=== PATIENT | female | born 1955 | race Caucasian/White ===

== ENCOUNTER 2019-05-17 11:00 | Observation (INO) | payer OTHER, SELFPAY ==
[2019-05-17] MEDS ORDERED: ASPIRIN 81 MG CHEWABLE TABLET ONE (11:05)
[2019-05-17] MEDS ORDERED: ONDANSETRON 4 MG/2 ML VIAL ONE (11:06)
[2019-05-17] MEDS ORDERED: FENTANYL CITR 100 MCG/2 ML ONE (11:06)
[2019-05-17] MEDS ORDERED: NA CHLORIDE 0.9% 500 ML ONE (11:06)
--- NOTE | 2019-05-17 11:36 | EKG ---
Test Date: 2019-05-17 Test Time: 11:02:16 Payroll Benefits Administrator: ADY MEASUREMENT RESULTS: Intervals: Rate: 72 CT: 130 QRSD: 76 QT: 440 QTc: 481 Ambler: P: 67 CT: 130 QRS: 13 T: 61 INTERPRETIVE STATEMENTS: Normal sinus rhythm Low voltage QRS Borderline ECG Compared to ECG 04/15/2015 13:31:00 Low QRS voltage now present Sinus arrhythmia no longer present Electronically Signed On 05-17-19 11:35:52 CDT by Daniel Bhatt
[2019-05-17 11:37] LABS: Absolute Lymphocytes (CBC) 2.2 K/uL (0.7-4.9); Basophils % 0.7 % (0-1.3); Hematocrit 37.1 % (36.0-45.0); Lymphocytes % 30.2 % (15.3-44.8); RBC Red Blood Cell Count 4.11 M/uL (3.86-4.86)
[2019-05-17 11:42] LABS: Protime INR 0.94
--- NOTE | 2019-05-17 11:51 | RAD REPORT ---
EXAM DESCRIPTION: RAD - Chest Single View - 05/17/2019 11:46 am CLINICAL HISTORY: CHEST PAIN Chest pain. COMPARISON: No comparisons FINDINGS: Portable technique limits examination quality. The lungs are grossly clear. The heart is normal in size. No displaced fractures. IMPRESSION: No acute intrathoracic process suspected.
[2019-05-17 11:58] LABS: ALT/SGPT 23 U/L (12-78); AST/SGOT 37 U/L (15-37); Albumin 3.5 g/dL (3.4-5.0); Alkaline Phosphatase 76 U/L (45-117); BUN Blood Urea Nitrogen 11 mg/dL (7-18); Bicarbonate 28 mmol/L (21-32); Bilirubin Direct 0.1 mg/dL (0-0.2); Bilirubin Total 0.3 mg/dL (0.2-1.0); Glucose Level 142 mg/dL (74-106); Lipase 89 U/L (73-393); Magnesium 2.1 mg/dL (1.8-2.4); NT PRO-BNP 46 pg/mL (<125); Potassium 3.2 mmol/L (3.5-5.1); Protein, Total 7.2 g/dL (6.4-8.2); Sodium Level 142 mmol/L (136-145); Troponin (Emerg Dept Use Only) < 0.02 ng/mL (0.0-0.045)
[2019-05-17] MEDS ORDERED: METHYLPREDNISOLONE 125 MG INJ ONE (12:27)
[2019-05-17] MEDS ORDERED: DIPHENHYDRAMINE 50 MG/ML VIAL ONE (12:27)
[2019-05-17] MEDS ORDERED: POTASSIUM CL SA 10 MEQ TAB PO ONE (12:28)
--- NOTE | 2019-05-17 12:57 | RAD REPORT ---
EXAM DESCRIPTION: CT - Angio Aorta For Dissection - 05/17/2019 12:43 pm CLINICAL HISTORY: . Chest and abdominal pain COMPARISON: None TECHNIQUE: Computed tomography angiography of the chest, abdomen pelvis were obtained. 100 cc Isovue 370 was administered intravenously. Coronal and sagittal reconstruction were performed. MIP 3D reconstruction was performed All CT scans are performed using dose optimization technique as appropriate and may include automated exposure control or mA/KV adjustment according to patient size. FINDINGS: An aortic dissection is not seen. An aortic aneurysm is not displayed. The celiac, SMA and JOSE A are patent . A lung consolidation is not present. A pericardial effusion is not seen. A pleural effusion is not n oted. The liver,spleen, pancreas adrenals kidneys demonstrate no significant abnormality. . There no evidence diverticulitis. No ascites is noted. Small inguinal hernias contain fat IMPRESSION: Negative for an aortic dissection.
--- NOTE | 2019-05-17 13:01 | EDPHYS ---
Physician Documentation [facility] Name: Tiffanie Koenig Age: 63 yrs Sex: Female : 1955 Arrival Date: 05/17/2019 Time: 11:03 Bed 2 Private MD: ED Physician Ankur Melendez HPI: 05/17 11:05 This 63 yrs old Female presents to ER via Unassigned with complaints of chest jr8 pain. 11:05 The patient or guardian reports chest pain that is located primarily in the epigastric jr8 area. Onset: 1 hour(s) ago. The pain radiates to Associated signs and symptoms: Pertinent positives: diaphoresis, dizziness, nausea, Pertinent negatives: palpitations, syncope, vomiting. The chest pain is described as a pressure. 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 Reports pain has subsided some but is still present. Pain is described as pressure. Historical: - Allergies: 11:22 Iodine; sg 11:22 Sulfazine; sg 11:22 Doxycycline; sg - Home Meds: 11:22 cyanocobalamin (vitamin B-12) oral oral [Active]; Bumetanide Oral once daily for sg Hypertension [Active]; - PMHx: 11:22 Hypothyroidism; High Cholesterol; Hypertension; sg - Immunization history:: Adult Immunizations up to date. - Social history:: Smoking status: Patient/guardian denies using tobacco. - Ebola Screening: : Patient negative for fever greater than or equal to 101.5 degrees Fahrenheit, and additional compatible Ebola Virus Disease symptoms Patient denies exposure to infectious person Patient denies travel to an Ebola-affected area in the 21 days before illness onset No symptoms or risks identified at this time. ROS: 11:09 Constitutional: Negative for fever, chills, and weight loss, Eyes: Negative for injury, jr8 pain, redness, and discharge, ENT: Negative for injury, pain, and discharge, Neck: Negative for injury, pain, and swelling, Abdomen/GI: Negative for abdominal pain, nausea, vomiting, diarrhea, and constipation, Back: Negative for injury and pain, MS/Extremity: Negative for injury and deformity. 11:09 Cardiovascular: Positive for chest pain, Negative for edema, orthopnea, palpitations, paroxysmal nocturnal dyspnea. 11:09 Respiratory: Negative for cough, dyspnea on exertion, hemoptysis, orthopnea, pleurisy, shortness of breath. 11:09 Abdomen/GI: Negative for abdominal pain, nausea and vomiting. Exam: 11:09 Constitutional: This is a well developed, well nourished patient who is awake, alert, jr8 and in no acute distress. Head/Face: Normocephalic, atraumatic. Eyes: Pupils equal round and reactive to light, extra-ocular motions intact. Lids and lashes normal. Conjunctiva and sclera are non-icteric and not injected. Cornea within normal limits. Periorbital areas with no swelling, redness, or edema. ENT: Nares patent. No nasal discharge, no septal abnormalities noted. Tympanic membranes are normal and external auditory canals are clear. Oropharynx with no redness, swelling, or masses, exudates, or evidence of obstruction, uvula midline. Mucous membranes moist. Neck: Trachea midline, no thyromegaly or masses palpated, and no cervical lymphadenopathy. Supple, full range of motion without nuchal rigidity, or vertebral point tenderness. No Meningismus. Chest/axilla: Normal chest wall appearance and motion. Nontender with no deformity. No lesions are appreciated. Respiratory: Lungs have equal breath sounds bilaterally, clear to auscultation and percussion. No rales, rhonchi or wheezes noted. No increased work of breathing, no retractions or nasal flaring. Abdomen/GI: Soft, non-tender, with normal bowel sounds. No distension or tympany. No guarding or rebound. No evidence of tenderness throughout. Back: No spinal tenderness. No costovertebral tenderness. Full range of motion. Skin: Warm, dry with normal turgor. Normal color with no rashes, no lesions, and no evidence of cellulitis. MS/ Extremity: Pulses equal, no cyanosis. Neurovascular intact. Full, normal range of motion. Neuro: Awake and alert, GCS 15, oriented to person, place, time, and situation. Cranial nerves II-XII grossly intact. Motor strength 5/5 in all extremities. Sensory grossly intact. Cerebellar exam normal. Normal gait. 11:09 Cardiovascular: Pulses: no pulse deficits are appreciated, Heart sounds: normal, normal S1and S2, Edema: is not appreciated, JVD: is not appreciated. Vital Signs: 11:19 BP 150 / 75; Pulse 60; Resp 16; Temp 97.6; Pulse Ox 98% on R/A; Height 5 ft. 5 in. sg (165.10 cm); Pain 8/10; 12:30 BP 132 / 77; Pulse 70; Resp 17; Pulse Ox 99% on R/A; Pain 8/10; sg 13:27 Weight 65.09 kg (M); iw 13:59 BP 131 / 70; Pulse 77; Resp 17 S; Temp 97.6; Pulse Ox 100% on R/A; Pain 1/10; sg 13:27 Body Mass Index 22.48 (65.09 kg, 165.10 cm) iw Helena Coma Score: 12:30 Eye Response: spontaneous(4). Verbal Response: oriented(5). Motor Response: obeys sg commands(6). Total: 15. Trauma Score (Adult): 12:30 Eye Response: spontaneous(1); Verbal Response: oriented(1); Motor Response: obeys sg commands(2); Systolic BP: > 89 mm Hg(4); Respiratory Rate: 10 to 29 per min(4); Natalie Score: 15; Trauma Score: 12 MDM: 11:05 Patient medically screened. jr8 12:59 The patient was given aspirin in the Emergency Department. Data reviewed: vital signs, jr8 nurses notes, lab test result(s), EKG, radiologic studies, CT scan, plain films. Data interpreted: Pulse oximetry: on room air is 98 %. Interpretation: normal. Counseling: I had a detailed discussion with the patient and/or guardian regarding: the historical points, exam findings, and any diagnostic results supporting the discharge/admit diagnosis, lab results, radiology results, the need for further work-up and treatment in the hospital. 05/17 11:04 Order name: Basic Metabolic Panel; Complete Time: : jr8 05/17 11:04 Order name: CBC with Diff; Complete Time: 11:46 jr8 05/17 11:04 Order name: LFT's; Complete Time: :58 jr8 05/17 11:04 Order name: Magnesium; Complete Time: :58 jr8 05/17 11:04 Order name: NT PRO-BNP; Complete Time: 11:58 05/17 11:04 Order name: PT-INR; Complete Time: 11:46 05/17 11:04 Order name: Troponin (emerg Dept Use Only); Complete Time: 11:58 05/17 11:04 Order name: XRAY Chest (1 view); Complete Time: 11:57 05/17 11:04 Order name: Lipase; Complete Time: 11:58 05/17 12:12 Order name: CT Aorta for Dissection; Complete Time: 12:59 05/17 11:04 Order name: EKG; Complete Time: 11:05 8 05/17 11:04 Order name: Cardiac monitoring; Complete Time: 11:06 8 05/17 11:04 Order name: EKG - Nurse/Tech; Complete Time: 11:06 05/17 11:04 Order name: IV Saline Lock; Complete Time: 11:06 8 05/17 11:04 Order name: Labs collected and sent; Complete Time: 11:06 05/17 11:04 Order name: O2 Per Protocol; Complete Time: 11:06 05/17 11:04 Order name: O2 Sat Monitoring; Complete Time: 11:06 Administered Medications: 11:10 Drug: Aspirin 162 mg Route: PO; sg 11:10 Drug: fentaNYL (PF) 50 mcg Route: IVP; Site: right forearm; sg 11:10 Drug: Zofran 4 mg Route: IVP; Site: right forearm; sg 11:10 Drug: NS 0.9% 500 ml Route: IV; Rate: bolus; Site: right forearm; sg 12:34 Drug: Benadryl 12.5 mg Route: IVP; Site: right forearm; sg 12:34 Drug: SOLU-Medrol 125 mg Route: IVP; Site: right forearm; sg 13:05 Drug: Potassium Chloride 40 mEq Route: PO; sg 13:54 Drug: Lovenox 1 mg/kg Route: Sub-Q; Site: left lower abdomen; sg Disposition: 14:41 Co-signature as Attending Physician, Ankur Melendez MD. rn Disposition: 05/17/19 13:00 Hospitalization ordered by Nasir Carty for Observation. Preliminary diagnosis is Chest pain, unspecified. - Bed requested for Telemetry/MedSurg (observation). - Status is Observation. iw - Condition is Stable. - Problem is new. - Symptoms have improved. UTI on Admission? No Signatures: Dispatcher [employer] EDBambi Degroot RN MJ dw Rupesh Damico, RN Chyna Garcia, Ankur Jolly RN, MD MD rn Roszak, Josh, PA PA jr8 Corrections: (The following items were deleted from the chart) 13:40 13:00 Hospitalization Ordered by Nasir Carty MD for Observation. Preliminary diagnosis dw is Chest pain, unspecified. Bed requested for Telemetry/MedSurg (observation). Status is Observation. Condition is Stable. Problem is new. Symptoms have improved. UTI on Admission? No. jr8 14:03 13:40 05/17/2019 13:00 Hospitalization Ordered by Nasir Carty MD for Observation. iw Preliminary diagnosis is Chest pain, unspecified. Bed requested for Telemetry/MedSurg (observation). Status is Observation. Condition is Stable. Problem is new. Symptoms have improved. UTI on Admission? No. dw
--- NOTE | 2019-05-17 13:01 | ER ---
Nurse's Notes [facility] Name: Tiffanie Koenig Age: 63 yrs Sex: Female : 1955 Arrival Date: 05/17/2019 Time: 11:03 Bed 2 Private MD: Diagnosis: Chest pain, unspecified Presentation: 05/17 11:00 Presenting complaint: Patient states: I started having pain in my right side shoulder sg blade area that radiates through my chest to mid sternal area, also having a little nausea as well. Transition of care: patient was not received from another setting of care. Onset of symptoms was May 17, 2019. Risk Assessment: Do you want to hurt yourself or someone else? Patient reports no desire to harm self or others. Initial Sepsis Screen: Does the patient meet any 2 criteria? No. Patient's initial sepsis screen is negative. Does the patient have a suspected source of infection? No. Patient's initial sepsis screen is negative. Care prior to arrival: None. 11:00 Method Of Arrival: Ambulatory sg 11:00 Acuity: BILLIE 2 sg Historical: - Allergies: 11:22 Iodine; sg 11:22 Sulfazine; sg 11:22 Doxycycline; sg - Home Meds: 11:22 cyanocobalamin (vitamin B-12) oral oral [Active]; Bumetanide Oral once daily for sg Hypertension [Active]; - PMHx: 11:22 Hypothyroidism; High Cholesterol; Hypertension; sg - Immunization history:: Adult Immunizations up to date. - Social history:: Smoking status: Patient/guardian denies using tobacco. - Ebola Screening: : Patient negative for fever greater than or equal to 101.5 degrees Fahrenheit, and additional compatible Ebola Virus Disease symptoms Patient denies exposure to infectious person Patient denies travel to an Ebola-affected area in the 21 days before illness onset No symptoms or risks identified at this time. Screenin:12 Abuse screen: Denies threats or abuse. Denies injuries from another. Nutritional sg screening: No deficits noted. Tuberculosis screening: No symptoms or risk factors identified. Never had TB. Fall Risk None identified. Assessment: 11:25 General: Appears in no apparent distress. well groomed, well developed, well nourished, sg Behavior is calm, cooperative, appropriate for age. Pain: Complains of pain in chest Quality of pain is described as aching. Neuro: Level of Consciousness is awake, alert, obeys commands, Oriented to person, place, time, Data Analyst are equal bilaterally Moves all extremities. Gait is steady, Facial symmetry appears normal. Cardiovascular: Capillary refill is brisk in bilateral fingers Patient's skin is warm and dry. Chest pain is denied. Cardiovascular: Reports chest pain, nausea, Heart tones S1 S2 present. Respiratory: Airway is patent Respiratory effort is even, unlabored, Respiratory pattern is regular, symmetrical. GI: No signs and/or symptoms were reported involving the gastrointestinal system. : No signs and/or symptoms were reported regarding the genitourinary system. EENT: No signs and/or symptoms were reported regarding the EENT system. Derm: Skin is pink, warm \T\ dry. Musculoskeletal: Circulation, motion, and sensation intact. Range of motion: intact in all extremities, Swelling absent. 11:52 Reassessment: pt reports pain is still present but has decreased from an 8/10 to about sg a 4/10 at this time. 12:37 Reassessment: Patient appears in no apparent distress at this time. Patient and/or sg family updated on plan of care and expected duration. Pain level reassessed. Patient is alert, oriented x 3, equal unlabored respirations, skin warm/dry/pink. pt transport to CT with train control technician Tiffanie in stable condition, pt family remains at the bedside. 13:35 Reassessment: Patient appears in no apparent distress at this time. Patient and/or sg family updated on plan of care and expected duration. Pain level reassessed. Patient is alert, oriented x 3, equal unlabored respirations, skin warm/dry/pink. awaiting admission orders, awaiting evaluation by hospitalist Patient states feeling better. Vital Signs: 11:19 BP 150 / 75; Pulse 60; Resp 16; Temp 97.6; Pulse Ox 98% on R/A; Height 5 ft. 5 in. sg (165.10 cm); Pain 8/10; 12:30 BP 132 / 77; Pulse 70; Resp 17; Pulse Ox 99% on R/A; Pain 8/10; sg 13:27 Weight 65.09 kg (M); iw 13:59 BP 131 / 70; Pulse 77; Resp 17 S; Temp 97.6; Pulse Ox 100% on R/A; Pain 1/10; sg 13:27 Body Mass Index 22.48 (65.09 kg, 165.10 cm) iw Drumore Coma Score: 12:30 Eye Response: spontaneous(4). Verbal Response: oriented(5). Motor Response: obeys sg commands(6). Total: 15. Trauma Score (Adult): 12:30 Eye Response: spontaneous(1); Verbal Response: oriented(1); Motor Response: obeys sg commands(2); Systolic BP: > 89 mm Hg(4); Respiratory Rate: 10 to 29 per min(4); Drumore Score: 15; Trauma Score: 12 ED Course: 11:03 Patient arrived in ED. jr8 11:04 Walter Cristobal PA is PHCP. jr8 11:04 Ankur Melendez MD is Attending Physician. jr8 11:06 Rupesh Damico, MJ is Primary Nurse. sg 11:07 Initial lab(s) drawn, by md, sent to lab. Inserted saline lock: 20 gauge in right sg forearm, using aseptic technique. Blood collected. 11:19 Triage completed. sg 11:19 Arm band placed on. sg 11:22 Patient has correct armband on for positive identification. Placed in gown. Bed in low sg position. Call light in reach. Side rails up X2. monitoring tech on. Pulse ox on. NIBP on. a blanket given x2 Head of bed elevated. 11:48 XRAY Chest (1 view) In Process Unspecified. EDMS 12:[address] sg 12:44 CT Aorta for Dissection In Process Unspecified. EDMS 13:00 Nasir Carty MD is Hospitalizing Provider. jr8 13:34 Assisted to bathroom. sg 13:54 No provider procedures requiring assistance completed. Patient admitted, IV remains in sg place. intact, No redness/swelling at site. Administered Medications: 11:10 Drug: Aspirin 162 mg Route: PO; sg 11:10 Drug: fentaNYL (PF) 50 mcg Route: IVP; Site: right forearm; sg 11:10 Drug: Zofran 4 mg Route: IVP; Site: right forearm; sg 11:10 Drug: NS 0.9% 500 ml Route: IV; Rate: bolus; Site: right forearm; sg 12:34 Drug: Benadryl 12.5 mg Route: IVP; Site: right forearm; sg 12:34 Drug: SOLU-Medrol 125 mg Route: IVP; Site: right forearm; sg 13:05 Drug: Potassium Chloride 40 mEq Route: PO; sg 13:54 Drug: Lovenox 1 mg/kg Route: Sub-Q; Site: left lower abdomen; sg Outcome: 13:00 Decision to Hospitalize by Provider. jrMarcelino 13:54 Admitted to Tele accompanied by tech, via wheelchair, room 403, on monitor, with chart, sg Report called to 403 13:54 Condition: stable 13:54 Instructed on the need for admit, safety practices, Demonstrated understanding of instructions, follow-up care. 13:54 Admitted to Tele Report called to Karon BARKER sg 14:03 Patient left the ED. iw Signatures: Dispatcher [employer] EDRupesh Duran, RN RN Chyna Munoz RN MJ iw Walter Cristobal PA PA jr8 Corrections: (The following items were deleted from the chart) 13:39 11:19 BP 150 / 75; Pulse 60bpm; Resp 16bpm; Pulse Ox 98% RA; Temp 97.6F; 78.02 kg; sg Height 5 ft. 7 in.; BMI: 26.9; Pain 8/10; sg
[2019-05-17] MEDS ORDERED: ENOXAPARIN 80 MG/0.8 ML SQ ONE (13:45)
[2019-05-17] MEDS ORDERED: MORPHINE 4 MG/ML SYR IV PRN (13:56)
[2019-05-17] MEDS ORDERED: NITROGLYCERIN 0.4 MG/TAB SL PRN (13:56)
[2019-05-17 14:20] VITALS: BMI 22.4
[2019-05-17] MEDS ORDERED: FAMOTIDINE 20 MG TAB PO PRN (16:44)
--- NOTE | 2019-05-17 16:56 | P.HP ---
Certification for Inpatient Patient admitted to: Observation Practitioner: I am a practitioner with admitting privileges, knowledge of patient current condition, hospital course, and medical plan of care. Services: Services provided to patient in accordance with Admission requirements found in Title 42 Section 412.3 of the Code of Federal Regulations Patient History Date of Service: 05/17/19 Primary Care Provider: Dr. Espinal ([facility]) Reason for admission: Chest pain History of Present Illness: This is a 63-year-old female with past medical history of hypothyroidism, hypertension, hyperlipidemia, family history of heart disease who presented to the emergency room this chest pain. Per patient, she woke up this morning and she started with pressure and squeezing type of substernal chest pain that started radiating out and towards the back and also straight to the back between the shoulder blades. This was associated with shortness of breath, excessive sweating and nausea. There are no alleviating or exacerbating factors. She has never experienced such symptoms before. Patient did take 2 baby aspirins number this pain started. Due to the fact that she was excessively sweating along with the shortness of breath and nausea with the chest pain, patient got scared and she came to the emergency room. In the ER, blood pressure was 150/75, heart rate of 60, respirations of 16, afebrile at 97.6, 90% on room air and a BMI of 26.94. Her labs were fairly unremarkable. Troponin was negative x1. EKG was with low voltage but fairly unremarkable. CT was negative for acute dissection. Chest x-ray was negative for any acute abnormalities. She received aspirin, Bentyl, Zofran, IV fluids, IV Benadryl and soluMedrol in the ER. At the time of my exam, she was alert oriented x3, no acute distress and hemodynamically stable. She stated that her chest pressure/pain had improved but she could still feel it. Allergies cranberry Allergy (Verified 05/17/19 14:43) Itching doxycycline Allergy (Verified 04/15/15 13:49) headaches grass pollen Allergy (Verified 05/17/19 14:43) Shortness of breath iodine Allergy (Verified 04/15/15 13:49) Nausea/Vomiting irbesartan [From Avapro] Allergy (Verified 05/17/19 14:43) Itching levofloxacin [From Levaquin] Allergy (Verified 05/17/19 14:43) Hives/Rash mold Allergy (Verified 05/17/19 14:43) Shortness of breath pneumococcal vaccine [From Pneumovax 23] Allergy (Verified 05/17/19 14:43) Hives/Rash shrimp Allergy (Verified 05/17/19 14:43) Hives/Rash solifenacin [From Vesicare] Allergy (Verified 05/17/19 14:43) Itching Sulfa (Sulfonamide Antibiotics) Allergy (Verified 04/15/15 13:49) Anaphylaxis tree and shrub pollen Allergy (Verified 05/17/19 14:43) Anaphylaxis Home medications list reviewed: Yes Home Medications: Bumetanide 1 tab PO DAILY 05/17/19 Cholecalciferol (Vitamin D3) [Vitamin D3] 1 cap PO DAILY 05/17/19 Cyanocobalamin (Vitamin B-12) [Vitamin B12] 2,000 mcg PO DAILY 05/17/19 Estradiol 1 tab PO DAILY 05/17/19 Estradiol Cream 0.5 gm IV DIRECTED 05/17/19 Ezetimibe [Zetia*] 1 tab PO DAILY 05/17/19 Famotidine [Pepcid*] 1 tab PO DAILY PRN 05/17/19 Lactobacillus Acidophilus [Acidophilus] 2 cap PO DAILY 05/17/19 Levothyroxine Sodium [Synthroid] 100 mcg PO DAILY 05/17/19 Losartan Potassium [Cozaar] 1 tab PO DAILY 05/17/19 Polyethylene Glycol 3350 [Miralax] 1 packet PO PRN PRN 05/17/19 Pravastatin Sodium 1 tab PO DAILY 05/17/19 Venlafaxine HCl [Venlafaxine HCl ER] 1 tab PO DAILY 05/17/19 Vitamin E (Dl,Tocopheryl Acet) [Vitamin E] 300 unit PO DAILY 05/17/19 - Past Medical/Surgical History Has patient received pneumonia vaccine in the past: No Diabetic: No -: interstitial cystitis -: hypothyroidism -: hypertension -: hyperlipidemia -: hysterectomy -: remove septic bursa sac from left elbow -: reconstruction of vaginal apex uterosacral ligament suspension -: anterior colporrhaphy - Family History Father -: Hypertension, Stroke Mother -: Hypertension - Social History Smoking Status: Never smoker Alcohol use: Yes CD- Drugs: No Caffeine use: No Place of Residence: Home Review of Systems 10-point ROS is otherwise unremarkable Physical Examination - Vital Signs Temperature: 97.7 F Blood Pressure: 124/64 Pulse: 77 Respirations: 17 Pulse Ox (%): 97 - Physical Exam General: Alert, In no apparent distress, Oriented x3 HEENT: Atraumatic, PERRLA, Mucous membr. moist/pink, EOMI, Sclerae nonicteric Neck: Supple, 2+ carotid pulse no bruit, No LAD, Without JVD or thyroid abnormality Respiratory: Clear to auscultation bilaterally, Normal air movement Cardiovascular: Regular rate/rhythm, Normal S1 S2 Gastrointestinal: Normal bowel sounds, No tenderness Musculoskeletal: No tenderness Integumentary: No rashes Neurological: Normal gait, Normal speech, Normal strength at 5/5 x4 extr, Normal tone, Normal affect Lymphatics: No axilla or inguinal lymphadenopathy - Studies Laboratory Data (last 24 hrs) 05/17/19 11:13: PT 11.1, INR 0.94 05/17/19 11:13: WBC 7.2, Hgb 13.1, Hct 37.1, Plt Count 307 05/17/19 11:13: Sodium 142, Potassium 3.2 L, BUN 11, Creatinine 0.84, Glucose 142 H, Magnesium 2.1, Total Bilirubin 0.3, AST 37, ALT 23, Alkaline Phosphatase 76, Lipase 89 Assessment and Plan - Problems (Diagnosis) (1) Chest pain Current Visit: Yes Status: Acute Plan: Heart score: 4, age, gender, hypertension, hyperlipidemia, family history, presenting symptoms -Troponin negative x1, Trend troponin -EKG with non specific changes -ECHO ordered, pending -cardiology consulted, awaiting recommendations -Chest pain guidelines: BB, Statin, ASA/plavix, Losartan (home medication) -Patient also on bumex, unsure if ever diagnosed with CHF but denies any edema/ LE swelling at this time. Qualifiers: Chest pain type: unspecified Qualified Code(s): R07.9 - Chest pain, unspecified (2) Hypertension Current Visit: Yes Status: Chronic Plan: Stable, will resume home medications Qualifiers: Hypertension type: essential hypertension Qualified Code(s): I10 - Essential (primary) hypertension (3) Hyperlipidemia Current Visit: Yes Status: Chronic Plan: Continue statin Qualifiers: Hyperlipidemia type: unspecified Qualified Code(s): E78.5 - Hyperlipidemia , unspecified (4) Hypothyroidism Current Visit: No Status: Chronic Plan: Continue home synthroid Qualifiers: Hypothyroidism type: unspecified Qualified Code(s): E03.9 - Hypothyroidism , unspecified - Plan DVT prophylaxis: Aspirin/Plavix GI prophylaxis: Protonix Diet: Heart healthy, NPO after midnight Disposition:; Admit to floor with tele; pending cardiac workup. Anticipate discharge home in the next 24-48 hr if cardiac workup negative and cleared by Cardiology. Discharge Plan: Home - Advance Directives Does patient have a Living Will: No Does patient have a Durable POA for Healthcare: No Time Spent Managing Pts Care (In Minutes): 55
[2019-05-17 19:59] LABS: Urine Appearance CLEAR; Urine Bilirubin NEGATIVE (NEG); Urine Blood NEGATIVE (NEG); Urine Color YELLOW; Urine Glucose NEGATIVE (NEG); Urine Protein NEGATIVE (NEG); Urine Specific Gravity >=1.030 (1.005-1.030); Urine pH 7.5 (5.0-7.0)
[2019-05-17 20:29] LABS: Urine Bacteria <20 /HPF (<20); Urine Culture Reflex Order NOT NEEDED; Urine RBC <5 /HPF (NONE SEEN)
[2019-05-17] MEDS: ATORVASTATIN 40 MG TAB PO SCH (21:09)
[2019-05-17] MEDS: METOPROLOL TAR 25 MG TAB PO SCH (21:09)
[2019-05-18 04:59] LABS: Absolute Lymphocytes (CBC) 1.1 K/uL (0.7-4.9); Basophils % 0.1 % (0-1.3); Hematocrit 35.3 % (36.0-45.0); Lymphocytes % 7.2 % (15.3-44.8); MPV 8.4 fL (7.6-11.3); RBC Red Blood Cell Count 3.89 M/uL (3.86-4.86)
[2019-05-18 05:20] LABS: Potassium 4.5 mmol/L (3.5-5.1)
[2019-05-18] MEDS: CLOPIDOGREL 75 MG TABLET PO SCH (09:00)
[2019-05-18] MEDS: METOPROLOL TAR 25 MG TAB PO SCH ×2 (09:00→21:00)
[2019-05-18] MEDS: LEVOTHYROXINE SOD 0.1 MG TAB PO SCH (09:00)
[2019-05-18] MEDS: EZETIMIBE 10 MG TAB PO SCH (09:00)
[2019-05-18] MEDS ORDERED: HOME MED 1 EA UNK (Venlafaxine Hcl [Venlafaxine Hcl Er] 1 TAB) PO SCH (09:00)
[2019-05-18] MEDS: CYANOCOBALAMIN 1,000 MCG TAB PO SCH (09:00)
[2019-05-18] MEDS: VITAMIN E 400 IU CAP PO SCH (09:00)
[2019-05-18] MEDS ORDERED: CYANOCOBALAMIN 2000 MCG PO SCH (09:00)
[2019-05-18] MEDS ORDERED: HOME MED 1 EA UNK (Losartan Potassium [Cozaar] 1 TAB) PO SCH (09:00)
[2019-05-18] MEDS: VITAMIN D 5,000 UNIT CAP PO SCH (09:00)
[2019-05-18] MEDS ORDERED: LISINOPRIL 10 MG TAB PO SCH (09:00)
[2019-05-18] MEDS ORDERED: BUMETANIDE PO SCH (09:00)
[2019-05-18] MEDS: ASPIRIN EC 81 MG TAB PO SCH (09:00)
[2019-05-18] MEDS ORDERED: REGADENOSON 0.4 MG/5 ML SYR IV ONE (09:02)
[2019-05-18 10:07] LABS: Blood Morphology Comment NOT SEEN (NOT SEEN); Platelet Estimate ADEQ
--- NOTE | 2019-05-18 10:33 | RAD REPORT ---
EXAM DESCRIPTION: US - Abdomen Exam Complete - 05/18/2019 10:00 am CLINICAL HISTORY: Abdominal pain. cholecystitis COMPARISON: No comparisons FINDINGS: The liver is normal in size, shape and echotexture. No focal liver lesions or intrahepatic biliary dilatation is seen. Extensive cholelithiasis. No evidence of acute cholecystitis. Common bile duct is normal in caliber m easuring 4 mm. Both kidneys are normal in size, shape and echotexture. No hydronephrosis, focal lesion of concern or perinephric fluid. The spleen is normal in size measuring 7 cm. The pancreas and aorta are obscured by bowel gas. The visualized aspects of the IVC are grossly normal. IMPRESSION: Cholelithiasis.
--- NOTE | 2019-05-18 11:57 | RAD REPORT ---
EXAM DESCRIPTION: NM - Rest Stress Cardiac Imaging - 05/18/2019 11:50 am CLINICAL HISTORY: CP Chest pain. COMPARISON: No comparisons TECHNIQUE: The patient was administered approximately 10mCi of Tc 99m Sestamibi prior to resting SPE CT imaging of the heart. The patient was then administered approximately 30 mCi of Tc 99m Sestamibi f ollowing exercise or pharmacologic stress. Multiplanar SPECT images were reviewed. FINDINGS: No stress induced ischemic defect is seen to suggest stress induced ischemia. No fixed def ect is seen to suggest hibernating myocardium or scarred myocardium. The end diastolic volume is 60 ml, the end systolic volume is 15 ml, and the ejection fraction is 75 %. IMPRESSION: No stress induced ischemia.
--- NOTE | 2019-05-18 12:37 | ECHO ---
HEIGHT: 5 ft 7 in WEIGHT: 143 lb 0 oz DATE OF STUDY: 05/18/[address]: Nasir Carty MD 2-DIMENSIONAL: YES M.MODE: YES DOPPLER: YES COLOR FLOW: YES TDS: PORTABLE: DEFINITY: BUBBLE STUDY: DIAGNOSIS: CHEST PAIN CARDIAC HISTORY: CATHERIZATION: NO SURGERY: NO PROSTHETIC VALVE: NO PACEMAKER: NO MEASUREMENTS (cm) DIASTOLIC (NORMALS) SYSTOLIC (NORMALS) IVSd 0.8 (0.6-1.2) LA Diam 2.8 (1.9-4.0) LVEF 78% LVIDd 3.3 (3.5-5.7) LVIDs 1.8 (2.0-3.5) %FS 45% LVPWd 1.0 (0.6-1.2) Ao Diam 2.7 (2.0-3.7) 2 DIMENSIONAL ASSESSMENT: RIGHT ATRIUM: NORMAL LEFT ATRIUM: NORMAL RIGHT VENTRICLE: NORMAL LEFT VENTRICLE: NORMAL TRICUSPID VALVE: NORMAL MITRAL VALVE: NORMAL PULMONIC VALVE: NORMAL AORTIC VALVE: NORMAL PERICARDIAL EFFUSION: NONE AORTIC ROOT: NORMAL LEFT VENTRICULAR WALL MOTION: NORMAL DOPPLER/COLOR FLOW: PHYSIOLOGIC TRICUSPID REGURGITATION. NORMAL RIGHT VENTRICULAR SYSTOLIC PRESSURE. COMMENTS: NORMAL TWO DIMENSIONAL ECHOCARDIOGRAM WITH DOPPLER. TECHNOLOGIST: BONG WHITEHEAD
--- NOTE | 2019-05-18 12:49 | TREADPHA ---
DX: CHEST PAIN, HEART SCORE 4. Date of Study: 05/18/19 Ht: 5 7 Wt: 143 lb 0 oz Consulting Physician: WESTON MEDICATIONS: ASPIRIN, LIPITOR, VITAMIN D, PLAVIX, B-12, PEPCID, SYNTHROID, LOPRESSOR, COZAAR, NITROSTAT, EFFEXOR, MORPHINE SULFATE. HISTORY: 63 YEAR FEMALE, WITH COMPLAINTS OF CHEST PAIN. HISTORY OF: HYPERTENSION, HYPERLIPIDEMIA, HYPOTHYROIDISM. PHYSICIAL EXAMINATION: RESTING B.P.: 120/67 RESTING H.R.: 59 RESTING EKG: SINUS BRADYCARDIA, LOW VOLTAGE. PROTOCOL: LEXISCAN EXERCISE TIME: 3:30 B.P. AT PEAK STRESS: 123/66 IMPRESSION: LEXISCAN INJECTED, FOLLOWED BY CARDIOLITE PER PROTOCOL, SEE NUCLEAR MEDICINE REPORT. NO SUPRAVENTRICULAR TACHYCARDIA, VENTRICULAR TACHYCARDIA, PREMATURE ATRIAL COMPLEXS, OR PREMATURE VENTRICULAR COMPLEXS. PATIENT REPORTS NO CHEST PAIN. NON-DIAGNOSTIC ELECTROCARDIOGRAM WITH LEXISCAN STRESS.
--- NOTE | 2019-05-18 14:13 | CON ---
Identification: 63-year-old woman. Chief Complaint: Chest pain. History Of Present Illness: it started as right posterior shoulder pain, later she developed epigastric pain that seemed to radiate all around her chest, She also noted feeling sweaty and nauseated. All that lasted several hours. She came to the emergency room. Here cardiac enzyme and ecg w were normal. The patient has hypertension and dyslipidemia about a year ago, had a gallbladder workup that was equivocal. Apparently, they were not sure if she had acalculous cholecystitis or not. She has never had myocardial infarction or stroke. Elderly members of her family have CAD. Social History: She does not use tobacco, alcohol, or illegal drugs. Medications: Outpatient medications have been levothyroxine, venlafaxine, Estradiol cream, losartan, bumetanide, pravastatin, ezetimibe, famotidine, vitamin E, cholecalciferol, cyanocobalamin, lactobacillus, polyethylene glycol. Physical Examination: General: 5 feet 7 inch, 143 pounds. HEENT: Normal. Lungs: Clear. Cardiac: Within normal limits. Abdomen: Soft. Extremities: Normal. No cyanosis, clubbing, or edema. Laboratory Data: EKG shows low voltage, otherwise it is normal. All of her troponins are less than 0.02. Total cholesterol 168, LDL 75. Impression: This is probably not an acute coronary syndrome. We will get a stress test and echocardiogram ane we should study her gallbladder. RIGO Voice ID: [id number] Report ID: [id number]
[2019-05-18] MEDS: VENLAFAXINE HCL XR 75 MG CAP PO SCH (16:11)
[2019-05-18] MEDS: LOSARTAN POTASSIUM 50 MG TABLET PO SCH (16:11)
[2019-05-18] MEDS: BUMETANIDE 1 MG TABLET PO SCH (16:11)
[2019-05-18] MEDS: ATORVASTATIN 40 MG TAB PO SCH (21:00)
[2019-05-18] MEDS ORDERED: DIPHENHYDRAMINE 50 MG/ML VIAL IV PRN (21:22)
[2019-05-18] MEDS ORDERED: FAMOTIDINE 20 MG/2 ML VIAL IV SCH (21:24)
[2019-05-19] MEDS: METOPROLOL TAR 25 MG TAB PO SCH (08:33)
[2019-05-19] MEDS: VENLAFAXINE HCL XR 75 MG CAP PO SCH (09:00)
[2019-05-19] MEDS: ASPIRIN EC 81 MG TAB PO SCH (09:00)
[2019-05-19] MEDS: VITAMIN D 5,000 UNIT CAP PO SCH (09:00)
[2019-05-19] MEDS: BUMETANIDE 1 MG TABLET PO SCH (09:00)
[2019-05-19] MEDS: CLOPIDOGREL 75 MG TABLET PO SCH (09:00)
[2019-05-19] MEDS: VITAMIN E 400 IU CAP PO SCH (09:00)
[2019-05-19] MEDS: CYANOCOBALAMIN 1,000 MCG TAB PO SCH (09:00)
[2019-05-19] MEDS: EZETIMIBE 10 MG TAB PO SCH (09:00)
[2019-05-19] MEDS: LOSARTAN POTASSIUM 50 MG TABLET PO SCH (09:00)
[2019-05-19] MEDS: LEVOTHYROXINE SOD 0.1 MG TAB PO SCH (09:00)
[2019-05-19] MEDS ORDERED: MIDAZOLAM HCL 2 MG/2 ML INJ ONE (09:17)
[2019-05-19] MEDS ORDERED: LIDOCAINE 2% MPF 5 ML VIAL ONE (09:17)
[2019-05-19] MEDS ORDERED: PROPOFOL 200 MG/20 ML VIAL IV ONE (09:17)
[2019-05-19] MEDS ORDERED: FENTANYL CITR 100 MCG/2 ML ONE (09:17)
[2019-05-19] MEDS ORDERED: ROCURONIUM 50 MG/5 ML VIAL IV ONE (09:17)
[2019-05-19] MEDS ORDERED: ONDANSETRON 4 MG/2 ML VIAL ONE (09:20)
[2019-05-19] MEDS ORDERED: dexAMETHasone 4 MG/ML VIAL ONE (09:20)
[2019-05-19] MEDS ORDERED: Ringers Lactate 1,000 ML IV ONE ×2 (09:22→11:23)
--- NOTE | 2019-05-19 09:58 | P.CNS ---
Date of Consult: 05/18/19 PC: I was asked to see this 63-year-old female regards to your upper abdominal/ chest pain HPC: Patient presented to the emergency room with severe pain in the upper portion her abdomen and chest. Radiating straight through to her back. Cause her significant discomfort. Has had minor episodes like this over the last few months but nothing compared to this time. PMH: Hypertension, hyperlipidemia PSHx: Previous pelvic surgery for prolapsed SOC: Numerous allergies listed (have reviewed them) SYS REVIEW: No cough, wheeze, shortness of breath. Denies any urinary complaints. No change in bowel habit. O/E awake alert comfortable HEENT: Nonicteric Chest: Air entry equal bilaterally ABD: Mild right upper quadrant tenderness LOCO: Intact DATA: CT scan shows cholelithiasis IMPRESSION: Cholelithiasis, chronic cholecystitis with biliary colic PLAN: I will take this patient to the operating room for laparoscopic possible open cholecystectomy with cholangiogram. The risks of this procedure have been discussed. The possibility of bleeding, infection, injury to bowel blood vessels, bile ducts were explained. She understands and wants to proceed. The possible need for an open and/or further surgeries and procedures was discussed.
[2019-05-19] MEDS ORDERED: CEFOXITIN/SWI 1gm 1 GM/10 ML SYR ONE (10:09)
[2019-05-19] MEDS ORDERED: EPHEDRINE SULF 50 MG/ML VIAL ONE (10:26)
[2019-05-19] MEDS ORDERED: KETOROLAC 30 MG/ML INJ ONE (10:55)
[2019-05-19] MEDS ORDERED: GLYCOPYRROLATE 0.2 MG/ML SYR ONE ×2 (10:58→10:59)
[2019-05-19] MEDS ORDERED: NEOSTIGMINE 1 MG/ML -10 ML VIAL ONE (10:58)
--- NOTE | 2019-05-19 11:33 | P.OP ---
Preoperative diagnosis: Cholecystitis with cholelithiasis Postoperative diagnosis: The same Primary procedure: Laparoscopic cholecystitis Secondary procedure: Cholangiogram Anesthesia: General Estimated blood loss: Less than 10 cc Specimen: 1 gallbladder and content Findings: Normal cholangiogram Operative Technique: The patient was brought to the operating room placed supine on the table. After the induction of adequate general endotracheal anesthesia, the area of the abdomen is prepped with a DuraPrep solution, and draped in the usual aseptic manner. A subumbilical incision was made. This brought down through the skin and subcutaneous tissue. The Visiport was used to enter the peritoneal cavity and created pneumoperitoneum to approximately 12 mm of mercury. Under direct vision a 5 mm trocar was placed in the upper midline, and 2 other 5 mm trocars on the right lateral side. The patient's head was then elevated and rolled towards the road mixer operator's side. We could see. A grasper was placed on the fundus of the gallbladder. Another 1 was placed down by Negar's pouch. Applying lateral traction we were able to dissect and expose the cystic duct and artery. Having obtained the critical view, the artery was dealt with 1st. It was clipped and divided in the usual manner. A clip was then placed between the gallbladder and the cystic duct. An opening was made into the cystic duct. We attempted then to pass the cholangiocath into the cystic duct. We were able to inject the duct with the Isovue. We had good flow contrast into the duodenum. No filling defects were noted. There was a small air bubble but no stone was identified. Clips were now placed on the distal portion of the cystic duct. The cystic duct was then divided. The gallbladder was now dissected free from the liver bed, placed into an Endo-Catch, and brought out through the umbilical trocar site. The gallbladder fossa was inspected to ensure adequate hemostasis. It was irrigated with a saline solution and the irrigant aspirated from the peritoneal cavity. 0.25% Marcaine was aerosolized into the right upper quadrant and the gallbladder fossa. The umbilical trocar site was now approximated with an Endo Close and an absorbable sutures. The pneumoperitoneum was then collapsed, the suture tied, and lyudmila applied to the skin. A further 0.25% Marcaine was injected around are incision sites. At the end of the procedure the patient was in a stable condition when sent to the recovery room. Needle sponge instrument count were correct. 1 specimen was sent for histopathology. Complications: None Transferred to: Recovery Room Condition: Good
[2019-05-19] MEDS: HYDROMORPHONE HCL 1 MG/ML INJ ONE ×4 (11:34→11:50)
[2019-05-19] MEDS ORDERED: MORPHINE 4 MG/ML SYR IV PRN (11:52)
[2019-05-19] MEDS ORDERED: ONDANSETRON 4 MG/2 ML VIAL IV PRN (11:52)
[2019-05-19] MEDS: FENTANYL CITR 100 MCG/2 ML ONE ×2 (12:00→12:05)
[2019-05-19 12:08] VITALS: O2SAT 96
[2019-05-19 17:09] VITALS: BP 111/63; TEMP 97.4
--- NOTE | 2019-05-19 17:44 | P.PN ---
Subjective Date of Service: 05/18/19 Primary Care Provider: Dr. Espinal ([facility]) Chief Complaint: Chest pain Subjective: Improving Patient seen and examined at bedside. No family at bedside. Chart reviewed and case discussed with nursing staff. Review of Systems 10-point ROS is otherwise unremarkable Physical Examination - Vital Signs Temperature: 97.4 F Blood Pressure: 111/63 Pulse: 72 Respirations: 18 Pulse Ox (%): 94 - Physical Exam General: Alert, In no apparent distress HEENT: Atraumatic, PERRLA, EOMI Neck: Supple, JVD not distended Respiratory: Clear to auscultation bilaterally, Normal air movement Cardiovascular: Regular rate/rhythm, Normal S1 S2 Gastrointestinal: Normal bowel sounds, No tenderness Musculoskeletal: No tenderness Integumentary: No rashes Neurological: Normal speech, Normal tone, Normal affect Lymphatics: No axilla or inguinal lymphadenopathy Assessment And Plan - Current Problems (Diagnosis) (1) Chest pain Current Visit: Yes Status: Acute Plan: Resolved Heart score: 4, age, gender, hypertension, hyperlipidemia, family history, presenting symptoms -Troponin negative x3 -EKG with non specific changes -ECHO unremarkable -cardiology consulted, recommendations page -Chest pain guidelines: BB, Statin, ASA/plavix, Losartan (home medication) -Patient also on bumex, unsure if ever diagnosed with CHF but denies any edema/ LE swelling at this time. Qualifiers: Chest pain type: unspecified Qualified Code(s): R07.9 - Chest pain, unspecified (2) Hypertension Current Visit: Yes Status: Chronic Plan: Stable, will resume home medications Qualifiers: Hypertension type: essential hypertension Qualified Code(s): I10 - Essential (primary) hypertension (3) Hyperlipidemia Current Visit: Yes Status: Chronic Plan: Continue statin Qualifiers: Hyperlipidemia type: unspecified Qualified Code(s): E78.5 - Hyperlipidemia , unspecified (4) Hypothyroidism Current Visit: No Status: Chronic Plan: Continue home synthroid Qualifiers: Hypothyroidism type: unspecified Qualified Code(s): E03.9 - Hypothyroidism , unspecified (5) Cholelithiasis Current Visit: Yes Status: Acute Plan: Patient with cholelithiasis on imaging, without evidence of cholecystitis. General surgery consulted. Patient decided she would like her lap cholecystectomy while she is in the hospital. Patient to undergo a lap cholecystectomy in the OR tomorrow. Qualifiers: Cholelithiasis location: gallbladder Cholecystitis presence: without cholecystitis Biliary obstruction: without biliary obstruction Qualified Code(s): K80.20 - Calculus of gallbladder without cholecystitis without obstruction - Plan DVT prophylaxis: Aspirin/Plavix GI prophylaxis: Protonix Diet: Heart healthy, NPO after midnight Disposition:; pending lab cholecystectomy.
--- NOTE | 2019-05-19 17:47 | P.SSS ---
Patient History Date of Service: 05/19/19 Primary Care Provider: Dr. Espinal ([facility]) Reason for admission: Chest pain History of Present Illness: This is a 63-year-old female with past medical history of hypothyroidism, hypertension, hyperlipidemia, family history of heart disease who presented to the emergency room this chest pain. Per patient, she woke up this morning and she started with pressure and squeezing type of substernal chest pain that started radiating out and towards the back and also straight to the back between the shoulder blades. This was associated with shortness of breath, excessive sweating and nausea. There are no alleviating or exacerbating factors. She has never experienced such symptoms before. Patient did take 2 baby aspirins number this pain started. Due to the fact that she was excessively sweating along with the shortness of breath and nausea with the chest pain, patient got scared and she came to the emergency room. In the ER, blood pressure was 150/75, heart rate of 60, respirations of 16, afebrile at 97.6, 90% on room air and a BMI of 26.94. Her labs were fairly unremarkable. Troponin was negative x1. EKG was with low voltage but fairly unremarkable. CT was negative for acute dissection. Chest x-ray was negative for any acute abnormalities. She received aspirin, Bentyl, Zofran, IV fluids, IV Benadryl and soluMedrol in the ER. At the time of my exam, she was alert oriented x3, no acute distress and hemodynamically stable. She stated that her chest pressure/pain had improved but she could still feel it. Allergies cranberry Allergy (Verified 05/17/19 14:43) Itching doxycycline Allergy (Verified 04/15/15 13:49) headaches grass pollen Allergy (Verified 05/17/19 14:43) Shortness of breath iodine Allergy (Verified 04/15/15 13:49) Nausea/Vomiting irbesartan [From Avapro] Allergy (Verified 05/17/19 14:43) Itching levofloxacin [From Levaquin] Allergy (Verified 05/17/19 14:43) Hives/Rash mold Allergy (Verified 05/17/19 14:43) Shortness of breath pneumococcal vaccine [From Pneumovax 23] Allergy (Verified 05/17/19 14:43) Hives/Rash shrimp Allergy (Verified 05/17/19 14:43) Hives/Rash solifenacin [From Vesicare] Allergy (Verified 05/17/19 14:43) Itching Sulfa (Sulfonamide Antibiotics) Allergy (Verified 04/15/15 13:49) Anaphylaxis tree and shrub pollen Allergy (Verified 05/17/19 14:43) Anaphylaxis Home medications list reviewed: Yes Home Medications: Bumetanide 1 tab PO DAILY 05/17/19 Cholecalciferol (Vitamin D3) [Vitamin D3] 1 cap PO DAILY 05/17/19 Cyanocobalamin (Vitamin B-12) [Vitamin B12] 2,000 mcg PO DAILY 05/17/19 Estradiol 1 tab PO DAILY 05/17/19 Estradiol Cream 0.5 gm IV DIRECTED 05/17/19 Ezetimibe [Zetia*] 1 tab PO DAILY 05/17/19 Famotidine [Pepcid*] 1 tab PO DAILY PRN 05/17/19 Lactobacillus Acidophilus [Acidophilus] 2 cap PO DAILY 05/17/19 Levothyroxine Sodium [Synthroid] 100 mcg PO DAILY 05/17/19 Losartan Potassium [Cozaar] 1 tab PO DAILY 05/17/19 Polyethylene Glycol 3350 [Miralax] 1 packet PO PRN PRN 05/17/19 Pravastatin Sodium 1 tab PO DAILY 05/17/19 Venlafaxine HCl [Venlafaxine HCl ER] 1 tab PO DAILY 05/17/19 Vitamin E (Dl,Tocopheryl Acet) [Vitamin E] 300 unit PO DAILY 05/17/19 - Past Medical/Surgical History Has patient received pneumonia vaccine in the past: No Diabetic: No -: interstitial cystitis -: hypothyroidism -: hypertension -: hyperlipidemia -: hysterectomy -: remove septic bursa sac from left elbow -: reconstruction of vaginal apex uterosacral ligament suspension -: anterior colporrhaphy - Family History Father -: Hypertension, Stroke Mother -: Hypertension - Social History Smoking Status: Never smoker Alcohol use: Yes CD- Drugs: No Caffeine use: No Place of Residence: Home Review of Systems 10-point ROS is otherwise unremarkable Physical Examination - Vital Signs Temperature: 97.4 F Blood Pressure: 111/63 Pulse: 72 Respirations: 18 Pulse Ox (%): 94 - Physical Exam General: Alert, In no apparent distress HEENT: Atraumatic, PERRLA, Mucous membr. moist/pink, EOMI, Sclerae nonicteric Neck: Supple, 2+ carotid pulse no bruit, No LAD, Without JVD or thyroid abnormality Respiratory: Clear to auscultation bilaterally, Normal air movement Cardiovascular: Regular rate/rhythm, Normal S1 S2 Gastrointestinal: Normal bowel sounds, No tenderness Musculoskeletal: No tenderness Integumentary: No rashes Neurological: Normal gait, Normal speech, Normal strength at 5/5 x4 extr, Normal tone, Normal affect Lymphatics: No axilla or inguinal lymphadenopathy - Diagnosis (Problem(s)) (1) Chest pain Current Visit: Yes Status: Acute Qualifiers: Chest pain type: unspecified Qualified Code(s): R07.9 - Chest pain, unspecified (2) Hypertension Current Visit: Yes Status: Chronic Qualifiers: Hypertension type: essential hypertension Qualified Code(s): I10 - Essential (primary) hypertension (3) Hyperlipidemia Current Visit: Yes Status: Chronic Qualifiers: Hyperlipidemia type: unspecified Qualified Code(s): E78.5 - Hyperlipidemia , unspecified (4) Hypothyroidism Current Visit: No Status: Chronic Qualifiers: Hypothyroidism type: unspecified Qualified Code(s): E03.9 - Hypothyroidism , unspecified (5) Cholelithiasis Current Visit: Yes Status: Acute Qualifiers: Cholelithiasis location: gallbladder Cholecystitis presence: without cholecystitis Biliary obstruction: without biliary obstruction Qualified Code(s): K80.20 - Calculus of gallbladder without cholecystitis without obstruction Treatment Summary: Patient was initially admitted for chest pain. ACS was ruled out. She was cleared by Cardiology. Abdominal ultrasound was done, which was found to have cholelithiasis on imaging without evidence of cholecystitis. General surgery was consulted. Patient underwent lap cholecystectomy on 05/19/2019. She did well post surgery. Prior to discharge, she tolerated GI soft diet, her symptoms had resolved and she was doing hemodynamically stable. She is doing well and she wanted to go home. Her diagnoses and treatment plan was explained to her, all questions were answered and she verbalized understanding. She was then discharged home a safe and stable manner after being cleared for discharge by general surgery and cardiology. - Disposition Discharge Date: 05/19/19 Disposition: ROUTINE DISCHARGE Condition: GOOD Consultations: Cardiology General surgery Patient Discharge Instructions: Please follow up with the primary care physician in 2-3 days. Please follow up with Surgery in 1 week. Return to the emergency room for worsening symptoms Activity: No lifting more than 10 lbs Time Spent Managing Pts Care (In Minutes): 55
--- NOTE | 2019-05-28 14:53 | RAD REPORT ---
EXAM DESCRIPTION: RAD - Cholangiogram Oper-Xray Or - 05/24/2019 2:08 pm FINDINGS: There were 3 images obtained during an intraoperative cholangiogram. Fluoro time was 0.1 m inutes. Assessment is limited when only selected static images are available to review. Rounded filling defec ts are present in the common bile duct. These could be duct stones or air bubbles. Correlation is nee ded with appearance during real-time fluoroscopic assessment.
== END 2019-05-19 18:42 | disposition home or self-care (01) ==
LOC: ER 11:00 → ERHOLD 13:29 → 4TH 14:00
PROVIDERS: ADMIT Family Medicine; ATTEND Family Medicine
PROC: BF00YZZ Plain Radiography of Bile Ducts using Other Contrast (ICD-10-PCS; 2019-05-19)
PROC: 0FT44ZZ Resection of Gallbladder, Percutaneous Endoscopic Approach (ICD-10-PCS; principal; 2019-05-19 11:30)
DX: K80.20 Calculus of gallbladder without cholecystitis without obstruction (principal); E03.9 Hypothyroidism, unspecified; I10 Essential (primary) hypertension; E78.5 Hyperlipidemia, unspecified; Z88.2 Allergy status to sulfonamides; Z91.013 Allergy to seafood; R07.9 Chest pain, unspecified
CPT/HCPCS: 93005; 93017; 93306; 85025 ×2; 81001; 80048 ×2; 36415; 83735; 85610; 80061; 80076; 88304; 84484 ×3; 83690; 83880; 71275; 74175; 74300; 71045; 76700; 94760 ×5; 78452; 96375; 96372; 96374; 99285; 47563; Q9967; J2704; J2710; J1200; J2250; J3010 ×3; J1650; J1170 ×2; J2785; G0378 ×5; J7120 ×2; J2930; J2405 ×2; A9500